=== PATIENT | male | born 1965 | race Caucasian/White ===

== ENCOUNTER 2022-07-03 10:32 | Observation (INO) ==
[2022-07-03 11:16] LABS: Mucus,Urine Few /LPF (Occasional); RBC,Urine 157 /HPF (0-4)
[2022-07-03 11:17] LABS: Barbiturates Screen,Urine Negative (Negative); Benzodiazepines Screen,Urine Negative (Negative); Bilirubin,Urine Moderate mg/dL (Negative); Blood, Urine Large mg/dL (Negative); Cannabinoid Screen,Urine Negative (Negative); Glucose,Urine (UA) Negative (Negative); Ketones,Urine 40 mg/dL (Negative); Nitrite,Urine Negative (Negative); Opiate Screen,Urine Negative (Negative); Phencyclidine Screen,Urine Negative (Negative); Protein,Urine 100 mg/dL (Negative); Urine Appearance Clear (Clear); Urine Color Dark Yellow (Yellow); Urine Specific Gravity >= 1.030 (1.001-1.035); Urine pH 5.5 (4.5-8.0)
[2022-07-03 11:21] LABS: Albumin 3.8 G/DL (3.4-5.0); Bilirubin,Total 0.7 MG/DL (0.20-1.00); Calcium 9.6 MG/DL (8.5-10.1); Osmolality,Calculated 296.8 MOS/KG (273-304); Potassium 3.7 MMOL/L (3.5-5.1); Total Protein 6.9 G/DL (6.4-8.2)
[2022-07-03 11:33] LABS: Basophils % 0.3 % (0.0-0.8); Eosinophils % 0.2 % (0.00-10.9); Hematocrit 44.7 VOL% (42.0-52.0); Hemoglobin 14.9 GM/DL (14.0-18.0); Immature Granulocytes % 0.5 %; Immature Granulocytes Absolute 0.04 #; Lymphocytes # 1.3 10*3/uL (1.4-4.0); Lymphocytes % 15.2 % (21.2-54.2); Mean Corpuscular HGB Conc 33.3 GM/DL (32-36); Mean Corpuscular Volume 95.1 FL (87-102); Mean Platelet Volume 10.5 FL (9.6-12.0); Monocytes # 0.8 10*3/uL (0.11-0.8); Neutrophils % 74.8 % (38.7-73.9); Platelet Count 274 T/CUMM (130-400); Red Cell Distribution Width 14.6 % (9.3-17.3); White Blood Count 8.7 T/CUMM (4-12)
[2022-07-03] MEDS ORDERED: cefTRIAXone 1,000 MG in SODIUM CHLORIDE 0.9% 100 ML IV STA (12:31)
[2022-07-03] MEDS ORDERED: LACTATED RINGERS 1,000 ML IV ONE (14:10)
[2022-07-03] MEDS ORDERED: GLUCAGON 1 MG VIAL IM PRN (14:50)
[2022-07-03] MEDS ORDERED: ONDANSETRON 4 MG/2 ML VIAL IV PRN (14:50)
[2022-07-03] MEDS ORDERED: DEXTROSE 10% 250 ML BAG IV PRN (14:50)
[2022-07-03 15:41] LABS: Risk Ratio 1.98; Thyroid Stimulating Hormone 2.55 uIU/ml (0.358-3.74); VLDL Cholesterol 17.8 MG/DL
[2022-07-03] MEDS ORDERED: ENOXAPARIN 40 MG/0.4 ML SYRINGE SUBCUT SCH (16:00)
[2022-07-03] MEDS: GABAPENTIN 100 MG CAPSULE PO SCH ×2 (17:06→21:15)
[2022-07-03] MEDS: LACTATED RINGERS 1,000 ML IV SCH (17:17)
[2022-07-03] MEDS ORDERED: ROSUVASTATIN 10 MG TABLET PO SCH (21:00)
[2022-07-03] MEDS ORDERED: QUEtiapine 100 MG TABLET PO SCH (21:00)
[2022-07-03] MEDS ORDERED: DONEPEZIL 10 MG TABLET PO SCH (21:00)
[2022-07-04] MEDS: LACTATED RINGERS 1,000 ML IV SCH ×2 (00:56→11:06)
[2022-07-04 07:05] LABS: Albumin 2.7 G/DL (3.4-5.0); Bilirubin,Total 0.5 MG/DL (0.20-1.00); Calcium 8.4 MG/DL (8.5-10.1); Osmolality,Calculated 283.3 MOS/KG (273-304); Potassium 3.2 MMOL/L (3.5-5.1); Total Protein 5.6 G/DL (6.4-8.2)
[2022-07-04 07:27] LABS: Basophils % 0.6 % (0.0-0.8); Eosinophils # 0.2 10*3/uL (0.0-0.87); Eosinophils % 2.8 % (0.00-10.9); Hematocrit 37.4 VOL% (42.0-52.0); Immature Granulocytes % 0.2 %; Immature Granulocytes Absolute 0.01 #; Lymphocytes # 2.4 10*3/uL (1.4-4.0); Lymphocytes % 44.5 % (21.2-54.2); Mean Corpuscular HGB Conc 32.4 GM/DL (32-36); Mean Corpuscular Volume 97.1 FL (87-102); Mean Platelet Volume 9.8 FL (9.6-12.0); Monocytes # 0.5 10*3/uL (0.11-0.8); Monocytes % 9.4 % (1.7-12.7); Neutrophils % 42.5 % (38.7-73.9); Red Blood Count 3.85 MC/CUMM (3.8-5.5); Red Cell Distribution Width 14.7 % (9.3-17.3)
[2022-07-04 07:28] LABS: Hemoglobin 12.1 GM/DL (14.0-18.0); Platelet Count 172 T/CUMM (130-400); White Blood Count 5.3 T/CUMM (4-12)
[2022-07-04] MEDS ORDERED: POTASSIUM CHLORIDE 20 MEQ TABLET PO ONE (08:00)
[2022-07-04] MEDS ORDERED: PANTOPRAZOLE 40 MG TABLET PO SCH (09:00)
[2022-07-04] MEDS ORDERED: SENNA 8.6 MG TABLET PO SCH (09:00)
[2022-07-04] MEDS ORDERED: DIVALPROEX 250 MG TABLET PO SCH ×2 (09:00→14:00)
[2022-07-04] MEDS ORDERED: CITALOPRAM 40 MG TABLET PO SCH (09:00)
[2022-07-04] MEDS ORDERED: HALOPERIDOL 5 MG TABLET PO SCH (09:00)
[2022-07-04] MEDS ORDERED: POLYETHYLENE GLYCOL POWDER 17 GM PACK PO SCH (09:00)
[2022-07-04] MEDS: GABAPENTIN 100 MG CAPSULE PO SCH (09:35)
[2022-07-04 11:57] VITALS: BP 110/64
== END 2022-07-04 12:16 ==
LOC: EDUNIT# → EDBD → N.EDINP 10:32 → N.ED 10:32 → SUATTDRO 14:37 → N.3E 15:00
PROVIDERS: ADMIT Internal Medicine; ATTEND Internal Medicine